=== PATIENT | male | born 1950 | race Hispanic/Latino ===

== ENCOUNTER 2017-09-12 01:18 | Inpatient (IN) | payer OTHER, MEDICARE ==
[~2017-09-12] VITALS: Ht 175.3 cm; Wt 73.7 kg
[~2017-09-12 01:18] MED LIST: AEC81 PO; ATOR40TA69 PO; CALC-866 PO; CLOP75TA32 PO; ENAL10TA PO; FOLI1TAB85 PO; GLYB-228 PO; HYDR12.530 PO; IVAB5TAB PO; LEVO500T2 PO; METO50TA18 PO; VITA400C70 PO
[2017-09-12 01:48] LABS: APPEARANCE,URINE CLEAR (CLEAR); COLOR,URINE YELLOW (YELLOW); GLUCOSE, URINE (UA) TRACE mg/dL (NEGATIVE); OCCULT BLOOD,URINE NEGATIVE (NEGATIVE); PH,URINE 6.5 (5.0-8.0); PROTEIN,URINE NEGATIVE (NEGATIVE)
[2017-09-12 01:49] LABS: BACTERIA,URINE Rare /HPF (None Seen); BILIRUBIN,URINE NEGATIVE (NEGATIVE); KETONES,URINE TRACE mg/dL (NEGATIVE); LEUKOCYTE ESTERASE ,URINE NEGATIVE (NEGATIVE); MUCUS,URINE Moderate LPF (None Seen); NITRATE,URINE NEGATIVE (NEGATIVE); RBC,URINE None Seen /HPF (0-1); SQUAMOUS EPITHELIAL CELL,UR Few /LPF (0-2); WBC,URINE None Seen /HPF (0-1)
[2017-09-12] MEDS ORDERED: ACETAMINOPHEN EXTRA STRENGTH 500 MG TABLET ONE (01:55)
[2017-09-12] MEDS ORDERED: CEFTRIAXONE SODIUM 2 GM VIAL ONE (01:55)
[2017-09-12 02:05] LABS: BASOPHILS % (AUTO) 0.4 % (0.0-5.0); EOSINOPHILS % (AUTO) 0.6 % (0.0-8.0); HEMATOCRIT 30.6 % (42-54); MEAN CORPUSCULAR HEMOGLOBIN 27.3 pg (27.0-33.0); MEAN CORPUSCULAR HGB CONC 32.9 g/dL (32.0-36.0); MEAN CORPUSCULAR VOLUME 82.8 fL (79-99); MONOCYTES % (AUTO) 10.9 % (3.0-13.0); NEUTROPHILS % (AUTO) 75.1 % (40.0-77.0); NUCLEATED RED BLOOD CELLS 0.1 % (0.0-0.19); PLATELET COUNT (AUTO) 161 K/uL (130-400); RED CELL DISTRIBUTION WIDTH 15.8 % (11.0-15.5); WHITE BLOOD COUNT (AUTO) 11.8 K/uL (4.8-10.8)
[2017-09-12 02:14] LABS: CARBON DIOXIDE 21 mmol/L (21-32); CHLORIDE 101 mmol/L (101-111); CREATININE 1.6 mg/dL (0.5-1.5); GLOMERULAR FILTR. RATE CALC 46 mL/min (>60); GLUCOSE,RANDOM 221 mg/dL (70-105); POTASSIUM 4.4 mmol/L (3.5-5.1); SODIUM SERUM 138 mmol/L (136-145); UREA NITROGEN, BLOOD 25 mg/dL (7-18)
[2017-09-12 02:15] LABS: INR 1.03 (0.85-1.15); PARTIAL THROMBOPLASTIN TIME 27.8 SEC (26.3-35.5); PROTHROMBIN TIME 10.8 SEC (9.6-11.6)
[2017-09-12 02:31] LABS: ALANINE AMINOTRANSFERASE 16 U/L (12-78); ALBUMIN 3.5 g/dL (3.5-5.0); ASPARTATE AMINOTRANSFERASE 17 U/L (10-37); BILIRUBIN,TOTAL 1.1 mg/dL (0.2-1.0); CREATINE KINASE MB < 0.5 ng/mL (0.5-3.6); CREATINE KINASE, TOTAL 118 U/L (21-232); MYOGLOBIN 76 ng/mL (10-92); TOTAL PROTEIN, SERUM 6.8 g/dL (6.0-8.3)
[2017-09-12] MEDS ORDERED: ASPIRIN 325 MG TABLET ONE ×2 (02:37→09:23)
[2017-09-12] MEDS ORDERED: FUROSEMIDE 10 MG/ML 4ML VIAL ONE (02:38)
[2017-09-12] MEDS ORDERED: FUROSEMIDE 10 MG/ML 2ML VIAL ONE (02:38)
[2017-09-12] MEDS ORDERED: METOPROLOL TARTRATE 1 MG/ML 5ML VIAL IV ONE (02:38)
[2017-09-12] MEDS ORDERED: ENOXAPARIN SODIUM 100 MG/1 ML SQ ONE (04:46)
[2017-09-12] MEDS ORDERED: LIDOCAINE HCL-MPF 1% 2ML VIAL IVP PRN (06:15)
[2017-09-12] MEDS ORDERED: HYDRALAZINE HCL 20 MG/ML VIAL IV PRN (06:15)
[2017-09-12] MEDS ORDERED: POTASSIUM CHLORIDE 20MEQ/100ML 100 ML IV PRN (06:15)
[2017-09-12] MEDS ORDERED: NITROGLYCERIN 0.4 MG SL TAB SL PRN (06:15)
[2017-09-12] MEDS: NITROGLYCERIN 1GM/1 INCH PACKET TD SCH ×3 (06:15→23:11)
[2017-09-12] MEDS: LEVOFLOXACIN 500 MG/D5W 100 ML 100 ML IV SCH (06:15)
[2017-09-12] MEDS ORDERED: ONDANSETRON HCL 4 MG/2 ML VIAL IV PRN (06:15)
[2017-09-12] MEDS ORDERED: ACETAMINOPHEN 325 MG TAB PO PRN ×2 (06:15)
[2017-09-12] MEDS ORDERED: POTASSIUM CHLORIDE 10% ELIXIR 20 MEQ/15 ML UDCUP PO PRN (06:15)
[2017-09-12] MEDS ORDERED: POTASSIUM CHLORIDE 20 MEQ ERTAB PO PRN (06:15)
[2017-09-12] MEDS ORDERED: GUAIFENESIN-DM 200/20 MG 10 ML PO PRN (06:15)
[2017-09-12] MEDS ORDERED: LEVOFLOXACIN 500 MG/D5W 100 ML 100 ML ONE (06:39)
[2017-09-12] MEDS ORDERED: NITROGLYCERIN 1GM/1 INCH PACKET TD ONE (06:40)
[2017-09-12] MEDS: INSULIN HUMULIN R 100 UNIT/ML 3ML SQ SCH ×4 (07:30→22:50)
[2017-09-12] MEDS ORDERED: ASPIRIN 325 MG TABLET PO SCH (09:00)
[2017-09-12] MEDS ORDERED: FAMOTIDINE 20MG TAB 20 MG TAB ONE (09:24)
[2017-09-12] MEDS ORDERED: ENOXAPARIN SODIUM 30 MG/0.3 ML SQ ONE (09:24)
[2017-09-12] MEDS: FAMOTIDINE 20MG TAB 20 MG TAB PO SCH ×2 (09:43→23:11)
[2017-09-12] MEDS ORDERED: ENOXAPARIN SODIUM 40 MG/0.4 ML SYRINGE SQ ONE (09:50)
[2017-09-12] MEDS: ENOXAPARIN SODIUM 40 MG/0.4 ML SYRINGE SQ SCH (09:52)
[2017-09-12 10:38] LABS: CREATINE KINASE MB 2.1 ng/mL (0.5-3.6)
[2017-09-12 10:40] LABS: TROPONIN I 1.43 ng/mL (0.00-0.06)
[2017-09-12] MEDS ORDERED: IPRATROPIUM/ALBUTEROL SULFATE 3 ML SOLUTION IH ONE (10:56)
[2017-09-12] MEDS: IPRATROPIUM/ALBUTEROL SULFATE 3 ML SOLUTION IH SCH ×2 (11:06→20:17)
[2017-09-12 13:23] VITALS: BP 123/67
[2017-09-12] MEDS ORDERED: FERR-82 PO (13:25)
[2017-09-12] MEDS: FUROSEMIDE 10 MG/ML 4ML VIAL IVP SCH (15:18)
[2017-09-12 16:00] VITALS: BP 132/77
[2017-09-12 19:31] VITALS: BP 111/66
[2017-09-12 23:38] VITALS: BP 139/83
[2017-09-12 23:56] VITALS: BP 139/83
[2017-09-13] MEDS: IPRATROPIUM/ALBUTEROL SULFATE 3 ML SOLUTION IH SCH ×4 (00:58→19:49)
[2017-09-13 03:55] VITALS: BP 106/65
[2017-09-13 04:21] LABS: HEMATOCRIT 27.7 % (42-54); MEAN CORPUSCULAR HEMOGLOBIN 28.2 pg (27.0-33.0); MEAN CORPUSCULAR HGB CONC 34.1 g/dL (32.0-36.0); MEAN CORPUSCULAR VOLUME 82.6 fL (79-99); PLATELET COUNT (AUTO) 171 K/uL (130-400); RED BLOOD CELL COUNT(AUTO) 3.35 MIL/uL (4.50-6.20); RED CELL DISTRIBUTION WIDTH 15.8 % (11.0-15.5); WHITE BLOOD COUNT (AUTO) 7.2 K/uL (4.8-10.8)
[2017-09-13 04:27] LABS: CREATININE 1.4 mg/dL (0.5-1.5)
[2017-09-13 04:43] LABS: B-TYPE NATRIURETIC PEPTIDE 483 pg/mL (0-100)
[2017-09-13] MEDS: FUROSEMIDE 10 MG/ML 4ML VIAL IVP SCH ×2 (04:57→17:36)
[2017-09-13] MEDS: INSULIN HUMULIN R 100 UNIT/ML 3ML SQ SCH ×4 (06:23→21:00)
[2017-09-13] MEDS: LEVOFLOXACIN 500 MG/D5W 100 ML 100 ML IV SCH (06:44)
[2017-09-13] MEDS: NITROGLYCERIN 1GM/1 INCH PACKET TD SCH (06:47)
[2017-09-13 07:00] VITALS: BP 100/67
[2017-09-13] MEDS: FAMOTIDINE 20MG TAB 20 MG TAB PO SCH ×2 (10:13→22:15)
[2017-09-13] MEDS: ENOXAPARIN SODIUM 40 MG/0.4 ML SYRINGE SQ SCH (10:13)
[2017-09-13] MEDS: GLIPIZIDE XL 5MG TAB PO SCH (10:14)
[2017-09-13 11:00] VITALS: BP 123/75
[2017-09-13 16:00] VITALS: BP 131/77
[2017-09-13 19:41] VITALS: BP 129/80
[2017-09-13] MEDS: ATORVASTATIN CALCIUM 40 MG TABLET PO SCH (22:16)
[2017-09-13 23:56] VITALS: BP 110/69
[2017-09-14] MEDS: IPRATROPIUM/ALBUTEROL SULFATE 3 ML SOLUTION IH SCH ×4 (01:36→22:01)
[2017-09-14 03:49] VITALS: BP 109/65
[2017-09-14] MEDS: FUROSEMIDE 10 MG/ML 4ML VIAL IVP SCH (04:09)
[2017-09-14 04:15] LABS: HEMATOCRIT 28.9 % (42-54); MEAN CORPUSCULAR HEMOGLOBIN 27.7 pg (27.0-33.0); MEAN CORPUSCULAR HGB CONC 33.5 g/dL (32.0-36.0); MEAN CORPUSCULAR VOLUME 82.6 fL (79-99); PLATELET COUNT (AUTO) 195 K/uL (130-400); RED CELL DISTRIBUTION WIDTH 16.2 % (11.0-15.5); WHITE BLOOD COUNT (AUTO) 7.7 K/uL (4.8-10.8)
[2017-09-14 04:26] LABS: CREATININE 1.6 mg/dL (0.5-1.5); POTASSIUM 3.5 mmol/L (3.5-5.1)
[2017-09-14] MEDS ORDERED: POTASSIUM CHLORIDE 10 MEQ/TAB.SA PO ONE ×4 (04:55→05:23)
[2017-09-14] MEDS: LEVOFLOXACIN 500 MG/D5W 100 ML 100 ML IV SCH (05:07)
[2017-09-14] MEDS: INSULIN HUMULIN R 100 UNIT/ML 3ML SQ SCH ×4 (06:17→21:00)
[2017-09-14 07:00] VITALS: BP 92/59
[2017-09-14] MEDS ORDERED: HYDROCHLOROTHIAZIDE 25 MG TABLET PO SCH (09:00)
[2017-09-14] MEDS: CLOPIDOGREL BISULFATE 75 MG TAB PO SCH (09:58)
[2017-09-14] MEDS: ASPIRIN 81 MG EC TAB PO SCH (09:59)
[2017-09-14] MEDS: FAMOTIDINE 20MG TAB 20 MG TAB PO SCH ×2 (09:59→22:22)
[2017-09-14] MEDS: GLIPIZIDE XL 5MG TAB PO SCH (10:00)
[2017-09-14] MEDS: FERROUS SULFATE 325 MG TABLET.DR PO SCH (10:00)
[2017-09-14] MEDS: ENOXAPARIN SODIUM 40 MG/0.4 ML SYRINGE SQ SCH (10:01)
[2017-09-14] MEDS: METOPROLOL TARTRATE 25 MG TAB PO SCH ×2 (10:04→22:22)
[2017-09-14] MEDS: FUROSEMIDE 40 MG TABLET PO SCH (10:04)
[2017-09-14 11:00] VITALS: BP 109/66
[2017-09-14 16:00] VITALS: BP 100/65
[2017-09-14 19:38] VITALS: BP 103/64
[2017-09-14 19:39] LABS: CREATINE KINASE MB 22.1 ng/mL (0.5-3.6)
[2017-09-14 19:55] LABS: TROPONIN I 15.96 ng/mL (0.00-0.06)
[2017-09-14] MEDS: ATORVASTATIN CALCIUM 40 MG TABLET PO SCH (22:22)
[2017-09-14 22:48] VITALS: BP 117/72
[2017-09-15 04:04] VITALS: BP 99/56
[2017-09-15 04:45] LABS: POTASSIUM 4.5 mmol/L (3.5-5.1)
[2017-09-15] MEDS: LEVOFLOXACIN 500 MG/D5W 100 ML 100 ML IV SCH (05:49)
[2017-09-15] MEDS: INSULIN HUMULIN R 100 UNIT/ML 3ML SQ SCH ×4 (05:57→21:00)
[2017-09-15] MEDS: IPRATROPIUM/ALBUTEROL SULFATE 3 ML SOLUTION IH SCH ×3 (07:00→21:55)
[2017-09-15 07:13] VITALS: BP 97/60
[2017-09-15] MEDS: FERROUS SULFATE 325 MG TABLET.DR PO SCH (08:14)
[2017-09-15] MEDS: CLOPIDOGREL BISULFATE 75 MG TAB PO SCH (08:14)
[2017-09-15] MEDS: ASPIRIN 81 MG EC TAB PO SCH (08:14)
[2017-09-15] MEDS: FUROSEMIDE 40 MG TABLET PO SCH (08:14)
[2017-09-15] MEDS: METOPROLOL TARTRATE 25 MG TAB PO SCH ×2 (08:15→21:14)
[2017-09-15] MEDS: ENOXAPARIN SODIUM 40 MG/0.4 ML SYRINGE SQ SCH (08:15)
[2017-09-15] MEDS: GLIPIZIDE XL 5MG TAB PO SCH (08:15)
[2017-09-15] MEDS: FAMOTIDINE 20MG TAB 20 MG TAB PO SCH ×2 (08:15→21:14)
[2017-09-15] MEDS ORDERED: RENAL DOSE IV PRN (09:00)
[2017-09-15] MEDS ORDERED: ENOXAPARIN SODIUM 1 MG/KG SQ SCH (09:00)
[2017-09-15] MEDS ORDERED: MORPHINE SULFATE 2 MG/ML 1ML SYG IVP PRN (09:30)
[2017-09-15 10:20] LABS: CREATINE KINASE MB 7.1 ng/mL (0.5-3.6)
[2017-09-15] MEDS: ENOXAPARIN SODIUM 80 MG/0.8 ML SQ SCH (10:30)
[2017-09-15] MEDS: LEVOFLOXACIN 250 MG/D5W 50ML 50 ML IVPB SCH (10:30)
[2017-09-15 10:33] LABS: TROPONIN I 7.15 ng/mL (0.00-0.06)
[2017-09-15 10:57] VITALS: BP 105/62
[2017-09-15 16:34] VITALS: BP 119/71
[2017-09-15 19:27] VITALS: BP 113/67
[2017-09-15] MEDS ORDERED: ACETYLCYSTEINE 20% 200MG/ML 4ML VIAL PO SCH (21:00)
[2017-09-15] MEDS: ACETYLCYSTEINE 10% 100MG/ML 4ML VIAL PO SCH (21:14)
[2017-09-15] MEDS: ATORVASTATIN CALCIUM 40 MG TABLET PO SCH (21:14)
[2017-09-15 23:23] VITALS: BP 96/60
[2017-09-15 23:48] LABS: APPEARANCE,URINE Clear (CLEAR); BILIRUBIN,URINE Negative (NEGATIVE); COLOR,URINE Yellow (YELLOW); GLUCOSE, URINE (UA) Negative (NEGATIVE); KETONES,URINE Negative (NEGATIVE); LEUKOCYTE ESTERASE ,URINE Negative (NEGATIVE); NITRATE,URINE Negative (NEGATIVE); OCCULT BLOOD,URINE Negative (NEGATIVE); PH,URINE 6.5 (5.0-8.0); PROTEIN,URINE Negative (NEGATIVE)
[2017-09-15 23:51] LABS: BACTERIA,URINE None Seen /HPF (None Seen); RBC,URINE None Seen /HPF (0-1); SQUAMOUS EPITHELIAL CELL,UR None Seen /LPF (0-2); WBC,URINE None Seen /HPF (0-1)
[2017-09-16 03:51] VITALS: BP 112/67
[2017-09-16 04:06] LABS: HEMATOCRIT 30.2 % (42-54); MEAN CORPUSCULAR HEMOGLOBIN 28.2 pg (27.0-33.0); MEAN CORPUSCULAR HGB CONC 34.3 g/dL (32.0-36.0); MEAN CORPUSCULAR VOLUME 82.2 fL (79-99); NUCLEATED RED BLOOD CELLS 0.1 % (0.0-0.19); PLATELET COUNT (AUTO) 243 K/uL (130-400); RED BLOOD CELL COUNT(AUTO) 3.68 MIL/uL (4.50-6.20); WHITE BLOOD COUNT (AUTO) 9.5 K/uL (4.8-10.8)
[2017-09-16 04:13] LABS: INR 1.05 (0.85-1.15); PARTIAL THROMBOPLASTIN TIME 27.3 SEC (26.3-35.5)
[2017-09-16 04:25] LABS: POTASSIUM 3.8 mmol/L (3.5-5.1)
[2017-09-16 04:26] LABS: CREATININE 1.9 mg/dL (0.5-1.5); MAGNESIUM 1.3 mg/dL (1.80-2.40); PHOSPHORUS 4.2 mg/dL (2.5-4.9); URIC ACID 8.2 mg/dL (2.6-7.2)
[2017-09-16] MEDS: IPRATROPIUM/ALBUTEROL SULFATE 3 ML SOLUTION IH SCH ×3 (06:07→22:18)
[2017-09-16] MEDS: INSULIN HUMULIN R 100 UNIT/ML 3ML SQ SCH ×4 (06:33→21:11)
[2017-09-16] MEDS: FUROSEMIDE 40 MG TABLET PO SCH (06:59)
[2017-09-16 07:15] VITALS: BP 111/67
[2017-09-16] MEDS: LEVOFLOXACIN 250 MG/D5W 50ML 50 ML IVPB SCH (07:45)
[2017-09-16] MEDS: CLOPIDOGREL BISULFATE 75 MG TAB PO SCH (07:46)
[2017-09-16] MEDS: FERROUS SULFATE 325 MG TABLET.DR PO SCH (07:46)
[2017-09-16] MEDS: ASPIRIN 81 MG EC TAB PO SCH (07:46)
[2017-09-16] MEDS: FAMOTIDINE 20MG TAB 20 MG TAB PO SCH ×2 (07:46→21:10)
[2017-09-16] MEDS: METOPROLOL TARTRATE 25 MG TAB PO SCH ×2 (07:46→21:10)
[2017-09-16] MEDS: ACETYLCYSTEINE 10% 100MG/ML 4ML VIAL PO SCH ×2 (07:46→21:10)
[2017-09-16] MEDS: GLIPIZIDE XL 5MG TAB PO SCH (07:46)
[2017-09-16] MEDS: ENOXAPARIN SODIUM 80 MG/0.8 ML SQ SCH (07:47)
[2017-09-16 11:15] VITALS: BP 102/63
[2017-09-16] MEDS: MAGNESIUM 2GM PREMIX 50ML 50 ML IV SCH (12:43)
[2017-09-16 16:20] VITALS: BP 105/63
[2017-09-16 19:17] VITALS: BP 104/61
[2017-09-16] MEDS: ATORVASTATIN CALCIUM 40 MG TABLET PO SCH (21:10)
[2017-09-16 23:16] VITALS: BP 94/53
[2017-09-17] MEDS ORDERED: LACTULOSE 20 GM/30 ML UDCUP PO PRN (03:00)
[2017-09-17 03:40] VITALS: BP 94/57
[2017-09-17 04:30] LABS: HEMATOCRIT 30.9 % (42-54); MEAN CORPUSCULAR HEMOGLOBIN 28.1 pg (27.0-33.0); MEAN CORPUSCULAR HGB CONC 33.9 g/dL (32.0-36.0); MEAN CORPUSCULAR VOLUME 82.9 fL (79-99); NUCLEATED RED BLOOD CELLS 0.1 % (0.0-0.19); PLATELET COUNT (AUTO) 246 K/uL (130-400); RED BLOOD CELL COUNT(AUTO) 3.73 MIL/uL (4.50-6.20)
[2017-09-17 04:46] LABS: CREATININE 1.8 mg/dL (0.5-1.5); MAGNESIUM 1.6 mg/dL (1.80-2.40); POTASSIUM 4.3 mmol/L (3.5-5.1)
[2017-09-17 05:07] LABS: % IRON SATURATION 15.5 % (30-44)
[2017-09-17] MEDS: IPRATROPIUM/ALBUTEROL SULFATE 3 ML SOLUTION IH SCH ×2 (05:55→13:14)
[2017-09-17] MEDS: INSULIN HUMULIN R 100 UNIT/ML 3ML SQ SCH ×2 (06:21→12:21)
[2017-09-17] MEDS: MAGNESIUM 2GM PREMIX 50ML 50 ML IV SCH (06:24)
[2017-09-17] MEDS ORDERED: GLYB5TAB8 PO (07:36)
[2017-09-17] MEDS ORDERED: FURO40TA7 PO (07:36)
[2017-09-17] MEDS ORDERED: METO25 PO (07:36)
[2017-09-17] MEDS ORDERED: AMOX-426 PO (07:36)
[2017-09-17 07:42] VITALS: BP 107/67
[2017-09-17] MEDS ORDERED: MAGNESIUM 2GM PREMIX 50ML 50 ML IV SCH (07:45)
[2017-09-17] MEDS ORDERED: METOPROLOL TARTRATE 25 MG TAB PO SCH (09:00)
[2017-09-17] MEDS: GLIPIZIDE XL 5MG TAB PO SCH (10:11)
[2017-09-17] MEDS: FUROSEMIDE 40 MG TABLET PO SCH (10:11)
[2017-09-17] MEDS: CLOPIDOGREL BISULFATE 75 MG TAB PO SCH (10:11)
[2017-09-17] MEDS: FERROUS SULFATE 325 MG TABLET.DR PO SCH (10:12)
[2017-09-17] MEDS: ASPIRIN 81 MG EC TAB PO SCH (10:12)
[2017-09-17] MEDS: ACETYLCYSTEINE 10% 100MG/ML 4ML VIAL PO SCH (10:12)
[2017-09-17] MEDS: FAMOTIDINE 20MG TAB 20 MG TAB PO SCH (10:12)
[2017-09-17] MEDS: LEVOFLOXACIN 250 MG/D5W 50ML 50 ML IVPB SCH (10:18)
[2017-09-17] MEDS: ENOXAPARIN SODIUM 80 MG/0.8 ML SQ SCH (10:19)
[2017-09-17 11:28] VITALS: BP 114/68
== END 2017-09-17 16:05 | disposition home or self-care (01) | DRG 280 ==
LOC: EDH 01:18 → EDHIP 04:41 → 2AH 13:17
PROVIDERS: ADMIT Internal Medicine; ATTEND Internal Medicine
DX: I21.4 Non-ST elevation (NSTEMI) myocardial infarction (principal); I50.23 Acute on chronic systolic (congestive) heart failure; N17.9 Acute kidney failure, unspecified; J18.9 Pneumonia, unspecified organism; E11.21 Type 2 diabetes mellitus with diabetic nephropathy; I13.0 Hypertensive heart and chronic kidney disease with heart failure and stage 1 through stage 4 chronic kidney disease, or unspecified chronic kidney disease; E11.65 Type 2 diabetes mellitus with hyperglycemia; E83.42 Hypomagnesemia; I42.0 Dilated cardiomyopathy; J44.0 Chronic obstructive pulmonary disease with (acute) lower respiratory infection; I42.9 Cardiomyopathy, unspecified; E11.22 Type 2 diabetes mellitus with diabetic chronic kidney disease; D64.9 Anemia, unspecified; E78.5 Hyperlipidemia, unspecified; H54.61 Unqualified visual loss, right eye, normal vision left eye; I25.110 Atherosclerotic heart disease of native coronary artery with unstable angina pectoris; I25.2 Old myocardial infarction; I25.5 Ischemic cardiomyopathy; I45.9 Conduction disorder, unspecified; N18.9 Chronic kidney disease, unspecified; Z95.1 Presence of aortocoronary bypass graft; Z95.810 Presence of automatic (implantable) cardiac defibrillator
CPT/HCPCS: 36415; 71045; 71046; 71250; 80048; 80053; 81001; 82550; 82553; 82728; 82948; 83540; 83550; 83605; 83735; 83874; 83880; 84100; 84484; 84550; 85025; 85027; 85610; 85730; 87040; 87088; 87804; 93005; 93306; 94640; 94664; 99291; J0696; J1650; J1815; J1940; J1956; J3475; J3490; J7608

== ENCOUNTER 2018-07-09 14:45 | Observation (INO) | payer OTHER, MEDICARE ==
[~2018-07-09 14:45] MED LIST changes: -CALC-866 PO; -ENAL10TA PO; +FERR-82 PO; +FURO40TA7 PO; -GLYB-228 PO; +GLYB5TAB8 PO; -HYDR12.530 PO; -IVAB5TAB PO; -LEVO500T2 PO; +METF-444 PO; +SACU1TAB PO; +SPIR25TA6 PO; -VITA400C70 PO
[2018-07-09] MEDS ORDERED: ASPIRIN 325 MG TABLET ONE (15:02)
[2018-07-09 15:35] LABS: BASOPHILS % (AUTO) 0.4 % (0.0-5.0); EOSINOPHILS % (AUTO) 0.9 % (0.0-8.0); HEMATOCRIT 34.5 % (42-54); LYMPHOCYTES % (AUTO) 25.8 % (21.0-51.0); MEAN CORPUSCULAR HEMOGLOBIN 29.2 pg (27.0-33.0); MEAN CORPUSCULAR HGB CONC 32.6 g/dL (32.0-36.0); MEAN CORPUSCULAR VOLUME 89.8 fL (79-99); MONOCYTES % (AUTO) 9.2 % (3.0-13.0); NEUTROPHILS % (AUTO) 63.7 % (40.0-77.0); PLATELET COUNT (AUTO) 165 K/uL (130-400); RED BLOOD CELL COUNT(AUTO) 3.84 MIL/uL (4.50-6.20); RED CELL DISTRIBUTION WIDTH 15.3 % (11.0-15.5); WHITE BLOOD COUNT (AUTO) 8.1 K/uL (4.8-10.8)
[2018-07-09 15:46] LABS: CREATININE 1.5 mg/dL (0.5-1.5); POTASSIUM 4.4 mmol/L (3.5-5.1)
[2018-07-09 15:49] LABS: INR 0.99 (0.85-1.15); PARTIAL THROMBOPLASTIN TIME 26.1 SEC (26.3-35.5); PROTHROMBIN TIME 10.4 SEC (9.6-11.6)
[2018-07-09 16:09] LABS: ALBUMIN 3.7 g/dL (3.5-5.0); BILIRUBIN,TOTAL 0.3 mg/dL (0.2-1.0); TOTAL PROTEIN, SERUM 7.5 g/dL (6.0-8.3)
[2018-07-09] MEDS ORDERED: ONDANSETRON HCL 4 MG/2 ML VIAL IV PRN (17:45)
[2018-07-09] MEDS ORDERED: HYDRALAZINE HCL 20 MG/ML VIAL IV PRN (17:45)
[2018-07-09] MEDS ORDERED: LACTULOSE 20 GM/30 ML UDCUP PO PRN (17:45)
[2018-07-09] MEDS ORDERED: MORPHINE SULFATE 4 MG/1ML SYG IV PRN (17:45)
[2018-07-09] MEDS ORDERED: MORPHINE SULFATE 2 MG/ML 1ML SYG IV PRN (17:45)
[2018-07-09] MEDS ORDERED: ACETAMINOPHEN 325 MG TAB PO PRN ×2 (17:45)
[2018-07-09] MEDS ORDERED: ZOLPIDEM TARTRATE 5 MG TAB PO PRN (17:45)
[2018-07-09] MEDS: NITROGLYCERIN 1GM/1 INCH PACKET TD SCH (17:45)
[2018-07-09] MEDS ORDERED: CLOPIDOGREL BISULFATE 300 MG TAB PO ONE (18:30)
[2018-07-09 20:20] LABS: HEMOGLOBIN A1C 9.7 % (4.0-6.0)
[2018-07-09] MEDS ORDERED: CLOPIDOGREL BISULFATE 300 MG TAB ONE (20:35)
[2018-07-09] MEDS ORDERED: METOPROLOL TARTRATE 25 MG TAB ONE (20:35)
[2018-07-09] MEDS ORDERED: NITROGLYCERIN 1GM/1 INCH PACKET TD ONE (20:35)
[2018-07-09 20:39] LABS: % IRON SATURATION 22.9 % (30-44)
[2018-07-09 20:46] LABS: CREATINE KINASE, TOTAL 67 U/L (21-232); MYOGLOBIN 46 ng/mL (10-92); THYROID STIMULATING HORMONE 2.73 uIU/mL (0.36-3.74); TROPONIN I < 0.04 ng/mL (0.00-0.06)
[2018-07-09 20:48] LABS: CRP QUANTITATIVE < 2.00 mg/L (0.00-9.0)
[2018-07-09] MEDS ORDERED: DEXTROSE 50%-WATER 50 ML DISP.SYRIN IV PRN (21:00)
[2018-07-09] MEDS ORDERED: METOPROLOL TARTRATE 25 MG TAB PO SCH (21:00)
[2018-07-09] MEDS: INSULIN HUMULIN R 100 UNIT/ML 3ML SQ SCH (21:00)
[2018-07-09] MEDS ORDERED: GLUCAGON 1MG KIT 1 MG ML IM PRN (21:00)
[2018-07-09] MEDS ORDERED: POTASSIUM CHLORIDE 20MEQ/100ML 100 ML IV PRN (21:30)
[2018-07-09] MEDS ORDERED: POTASSIUM CHLORIDE 20 MEQ ERTAB PO PRN (21:30)
[2018-07-09] MEDS ORDERED: LIDOCAINE HCL-MPF 1% 2ML VIAL IVP PRN (21:30)
[2018-07-09] MEDS ORDERED: POTASSIUM CHLORIDE 10% ELIXIR 20 MEQ/15 ML UDCUP PO PRN (21:30)
[2018-07-09 22:21] VITALS: BP 126/70
[2018-07-09 23:00] VITALS: BP 126/70
[2018-07-09] MEDS ORDERED: SACU1TAB PO (23:45)
[2018-07-09] MEDS ORDERED: TORS5TAB12 PO (23:45)
[2018-07-10 01:57] LABS: TROPONIN I 0.04 ng/mL (0.00-0.06)
[2018-07-10] MEDS: NITROGLYCERIN 1GM/1 INCH PACKET TD SCH ×3 (03:38→17:45)
[2018-07-10 04:00] VITALS: BP 112/58
[2018-07-10] MEDS: MAGNESIUM 2GM PREMIX 50ML 50 ML IV PRN ×2 (05:17→06:35)
[2018-07-10] MEDS: INSULIN HUMULIN R 100 UNIT/ML 3ML SQ SCH ×3 (06:37→16:30)
[2018-07-10 07:48] VITALS: BP 104/56
[2018-07-10] MEDS ORDERED: ASPIRIN 325 MG TABLET PO SCH (09:00)
[2018-07-10] MEDS ORDERED: ASCORBIC ACID 500 MG TAB PO SCH (09:00)
[2018-07-10] MEDS ORDERED: TORSEMIDE 20 MG TAB PO SCH (09:00)
[2018-07-10] MEDS ORDERED: PANTOPRAZOLE SODIUM 40 MG TABLET.DR PO SCH (09:00)
[2018-07-10] MEDS ORDERED: FERROUS SULFATE 325 MG TABLET.DR PO SCH (09:00)
[2018-07-10] MEDS ORDERED: ENOXAPARIN SODIUM 40 MG/0.4 ML SYRINGE SQ SCH (09:00)
[2018-07-10] MEDS ORDERED: LINAGLIPTIN 5 MG TABLET PO SCH (09:00)
[2018-07-10] MEDS ORDERED: VALSARTAN PO SCH (09:00)
[2018-07-10] MEDS ORDERED: SACUBITRIL PO SCH (09:00)
[2018-07-10] MEDS ORDERED: SPIRONOLACTONE 25 MG TAB PO SCH (09:00)
[2018-07-10] MEDS ORDERED: METOPROLOL TARTRATE 50 MG TAB PO SCH (09:00)
[2018-07-10] MEDS ORDERED: ASPIRIN 81 MG EC TAB PO SCH (09:00)
[2018-07-10] MEDS ORDERED: CLOPIDOGREL BISULFATE 75 MG TAB PO SCH ×2 (09:00)
[2018-07-10] MEDS ORDERED: FOLIC ACID/VITAMIN B COMP W-C 1 MG CAPSULE PO SCH (09:00)
[2018-07-10] MEDS ORDERED: MAGNESIUM OXIDE 400 MG TABLET PO SCH (09:00)
[2018-07-10] MEDS: METFORMIN HCL 500 MG TABLET PO SCH ×2 (09:22→17:43)
[2018-07-10 09:44] LABS: BASOPHILS % (AUTO) 0.8 % (0.0-5.0); EOSINOPHILS % (AUTO) 1.1 % (0.0-8.0); HEMATOCRIT 33.9 % (42-54); LYMPHOCYTES % (AUTO) 20.6 % (21.0-51.0); MEAN CORPUSCULAR HEMOGLOBIN 30.4 pg (27.0-33.0); MEAN CORPUSCULAR HGB CONC 34.2 g/dL (32.0-36.0); MEAN CORPUSCULAR VOLUME 88.9 fL (79-99); MONOCYTES % (AUTO) 7.7 % (3.0-13.0); NEUTROPHILS % (AUTO) 69.8 % (40.0-77.0); PLATELET COUNT (AUTO) 167 K/uL (130-400); RED BLOOD CELL COUNT(AUTO) 3.81 MIL/uL (4.50-6.20); RED CELL DISTRIBUTION WIDTH 15.5 % (11.0-15.5); WHITE BLOOD COUNT (AUTO) 7.2 K/uL (4.8-10.8)
[2018-07-10 09:50] LABS: CREATININE 1.2 mg/dL (0.5-1.5); POTASSIUM 4.3 mmol/L (3.5-5.1)
[2018-07-10 10:08] LABS: ALBUMIN 3.4 g/dL (3.5-5.0); BILIRUBIN,TOTAL 0.4 mg/dL (0.2-1.0); MAGNESIUM 1.8 mg/dL (1.80-2.40); TOTAL PROTEIN, SERUM 6.7 g/dL (6.0-8.3); TROPONIN I 0.1 ng/mL (0.00-0.06)
[2018-07-10 11:03] VITALS: BP 127/71
[2018-07-10] MEDS ORDERED: LINA5TAB PO (15:20)
[2018-07-10 16:16] VITALS: BP 93/54
[2018-07-10] MEDS ORDERED: INSULIN GLARGINE 100 UNITS/ML 10 ML VIAL SQ SCH (21:00)
[2018-07-10] MEDS ORDERED: ATORVASTATIN CALCIUM 40 MG TABLET PO SCH (21:00)
== END 2018-07-10 18:16 | disposition home or self-care (01) ==
LOC: EDH 14:45 → EDHIP 17:37 → 2AH 19:56
PROVIDERS: ADMIT Internal Medicine; ATTEND Internal Medicine
DX: R07.89 Other chest pain (principal); I25.5 Ischemic cardiomyopathy; I11.0 Hypertensive heart disease with heart failure; I50.42 Chronic combined systolic (congestive) and diastolic (congestive) heart failure; E11.65 Type 2 diabetes mellitus with hyperglycemia; E83.42 Hypomagnesemia; G47.00 Insomnia, unspecified; I25.10 Atherosclerotic heart disease of native coronary artery without angina pectoris; I25.2 Old myocardial infarction; K59.00 Constipation, unspecified; N19 Unspecified kidney failure; Z83.3 Family history of diabetes mellitus; Z95.1 Presence of aortocoronary bypass graft; Z95.810 Presence of automatic (implantable) cardiac defibrillator; Z79.84 Long term (current) use of oral hypoglycemic drugs
CPT/HCPCS: 36415 ×2; 71045; 80053 ×2; 80061; 82550 ×4; 82948 ×3; 83036; 83540; 83550; 83735 ×2; 83874 ×4; 83880; 84443; 84484 ×4; 85025 ×2; 85610; 85730; 86140; 93005 ×3; 93306; 96372; 99285; G0378 ×25; J1650; J1815 ×2; J3475 ×2

== ENCOUNTER 2018-07-30 23:40 | Observation (INO) | payer OTHER, MEDICARE ==
[~2018-07-30] VITALS: Ht 172.7 cm; Wt 65.3 kg
[~2018-07-30 23:40] MED LIST changes: -FURO40TA7 PO; -GLYB5TAB8 PO; +LINA5TAB PO; +TORS5TAB12 PO
[2018-07-30 23:58] LABS: BASOPHILS % (AUTO) 0.5 % (0.0-5.0); EOSINOPHILS % (AUTO) 1.1 % (0.0-8.0); HEMATOCRIT 36.7 % (42-54); LYMPHOCYTES % (AUTO) 31.9 % (21.0-51.0); MEAN CORPUSCULAR HEMOGLOBIN 30.5 pg (27.0-33.0); MEAN CORPUSCULAR HGB CONC 34.1 g/dL (32.0-36.0); MEAN CORPUSCULAR VOLUME 89.3 fL (79-99); MONOCYTES % (AUTO) 11.9 % (3.0-13.0); NEUTROPHILS % (AUTO) 54.6 % (40.0-77.0); PLATELET COUNT (AUTO) 206 K/uL (130-400); RED CELL DISTRIBUTION WIDTH 14.4 % (11.0-15.5); WHITE BLOOD COUNT (AUTO) 8.8 K/uL (4.8-10.8)
[2018-07-31] MEDS ORDERED: NITROGLYCERIN 1GM/1 INCH PACKET TD ONE ×2 (00:03→09:34)
[2018-07-31 00:16] LABS: CREATININE 1.5 mg/dL (0.5-1.5); INR 0.97 (0.85-1.15); PARTIAL THROMBOPLASTIN TIME 27.1 SEC (26.3-35.5); POTASSIUM 4.4 mmol/L (3.5-5.1); PROTHROMBIN TIME 10.2 SEC (9.6-11.6)
[2018-07-31 00:21] LABS: BILIRUBIN,TOTAL 0.4 mg/dL (0.2-1.0); TOTAL PROTEIN, SERUM 7.6 g/dL (6.0-8.3)
[2018-07-31 00:26] LABS: B-TYPE NATRIURETIC PEPTIDE 209 pg/mL (0-100)
[2018-07-31] MEDS ORDERED: MAGNESIUM OXIDE 400 MG TABLET PO ONE (00:27)
[2018-07-31] MEDS ORDERED: METOPROLOL TARTRATE 1 MG/ML 5ML VIAL IV ONE (00:27)
[2018-07-31] MEDS ORDERED: ACETAMINOPHEN 325 MG TAB PO PRN (01:00)
[2018-07-31] MEDS ORDERED: MORPHINE SULFATE 2 MG/ML 1ML SYG IV PRN (01:00)
[2018-07-31] MEDS ORDERED: NITROGLYCERIN 1GM/1 INCH PACKET TD SCH ×2 (01:00→06:26)
[2018-07-31] MEDS ORDERED: ONDANSETRON HCL 4 MG/2 ML VIAL IV PRN (01:00)
[2018-07-31] MEDS ORDERED: PHARMACY COMMUNICATION MISC SCH (01:45)
[2018-07-31 02:34] LABS: APPEARANCE,URINE Clear (CLEAR); BILIRUBIN,URINE Negative (NEGATIVE); COLOR,URINE Yellow (YELLOW); GLUCOSE, URINE (UA) 250 mg/dL (NEGATIVE); KETONES,URINE Negative (NEGATIVE); LEUKOCYTE ESTERASE ,URINE Negative (NEGATIVE); NITRATE,URINE Negative (NEGATIVE); OCCULT BLOOD,URINE Negative (NEGATIVE); PROTEIN,URINE Negative (NEGATIVE)
[2018-07-31 02:56] LABS: BACTERIA,URINE Rare /HPF (None Seen); RBC,URINE None Seen /HPF (0-1); WBC,URINE None Seen /HPF (0-1)
[2018-07-31] MEDS ORDERED: ASPIRIN 325 MG TABLET ONE (08:59)
[2018-07-31] MEDS ORDERED: ENOXAPARIN SODIUM 30 MG/0.3 ML SQ ONE (08:59)
[2018-07-31] MEDS ORDERED: CLOPIDOGREL BISULFATE 75 MG TAB ONE (08:59)
[2018-07-31] MEDS ORDERED: SPIRONOLACTONE 25 MG TAB PO SCH (09:00)
[2018-07-31] MEDS ORDERED: VITAMIN B COMPLEX 1 CAPSULE PO SCH (09:00)
[2018-07-31] MEDS ORDERED: METOPROLOL TARTRATE 50 MG TAB PO SCH (09:00)
[2018-07-31] MEDS ORDERED: ASPIRIN 325 MG TABLET PO SCH (09:00)
[2018-07-31] MEDS ORDERED: TORSEMIDE 20 MG TAB PO SCH (09:00)
[2018-07-31] MEDS ORDERED: ENOXAPARIN SODIUM 30 MG/0.3 ML SQ SCH (09:00)
[2018-07-31] MEDS ORDERED: CLOPIDOGREL BISULFATE 75 MG TAB PO SCH (09:00)
[2018-07-31] MEDS ORDERED: FAMOTIDINE/PF 20 MG/2 ML VIAL IV ONE (09:00)
[2018-07-31] MEDS ORDERED: METOPROLOL TARTRATE 25 MG TAB PO SCH ×2 (09:00)
[2018-07-31] MEDS ORDERED: FAMOTIDINE/PF 20 MG/2 ML VIAL IV SCH (09:00)
[2018-07-31] MEDS ORDERED: INSULIN HUMULIN R 100 UNIT/ML 3ML ONE (09:01)
[2018-07-31] MEDS ORDERED: KETOROLAC TROMETHAMINE 15MG/ML ONE (17:08)
== END 2018-07-31 23:58 | disposition home or self-care (01) ==
LOC: EDH 23:40 → EDHIP 07-31 00:50
PROVIDERS: ADMIT Internal Medicine; ATTEND Internal Medicine
DX: I24.9 Acute ischemic heart disease, unspecified (principal); I25.10 Atherosclerotic heart disease of native coronary artery without angina pectoris; E11.65 Type 2 diabetes mellitus with hyperglycemia; E78.5 Hyperlipidemia, unspecified; I10 Essential (primary) hypertension; Z82.49 Family history of ischemic heart disease and other diseases of the circulatory system; Z83.3 Family history of diabetes mellitus; Z95.1 Presence of aortocoronary bypass graft; Z95.810 Presence of automatic (implantable) cardiac defibrillator
CPT/HCPCS: 36415; 71045; 80053; 81001; 82948; 83735; 83880; 84484 ×2; 85025; 85610; 85730; 93005; 99291; G0378 ×23; J1650; J1815; J1885; J3490 ×2

== ENCOUNTER 2018-10-05 08:47 | Observation (INO) | payer OTHER, MEDICARE ==
[~2018-10-05] VITALS: Ht 172.7 cm; Wt 61.9 kg
[~2018-10-05 08:47] MED LIST changes: +ALPR0.25 PO; -FOLI1TAB85 PO; -LINA5TAB PO; -METO50TA18 PO; -SACU1TAB PO; -SPIR25TA6 PO; -TORS5TAB12 PO; +[UNRECOGNIZED DRUG - OTHER]
[2018-10-05] MEDS ORDERED: ASPIRIN 81MG TAB.CHEW ONE (09:17)
[2018-10-05] MEDS ORDERED: ONDANSETRON HCL 4 MG/2 ML VIAL ONE (09:18)
[2018-10-05 09:21] LABS: BASOPHILS % (AUTO) 0.4 % (0.0-5.0); EOSINOPHILS % (AUTO) 0.8 % (0.0-8.0); HEMATOCRIT 42.5 % (42-54); MEAN CORPUSCULAR HEMOGLOBIN 30.2 pg (27.0-33.0); MEAN CORPUSCULAR HGB CONC 33.2 g/dL (32.0-36.0); MEAN CORPUSCULAR VOLUME 90.9 fL (79-99); MONOCYTES % (AUTO) 9.3 % (3.0-13.0); NEUTROPHILS % (AUTO) 61.5 % (40.0-77.0); PLATELET COUNT (AUTO) 207 K/uL (130-400); RED BLOOD CELL COUNT(AUTO) 4.68 MIL/uL (4.50-6.20); WHITE BLOOD COUNT (AUTO) 9.1 K/uL (4.8-10.8)
[2018-10-05 09:28] LABS: CREATININE 1.4 mg/dL (0.5-1.5); POTASSIUM 4.1 mmol/L (3.5-5.1)
[2018-10-05 09:33] LABS: INR 1.06 (0.85-1.15); PARTIAL THROMBOPLASTIN TIME 28.8 SEC (26.3-35.5); PROTHROMBIN TIME 11.1 SEC (9.6-11.6)
[2018-10-05 09:47] LABS: ALBUMIN 4.5 g/dL (3.5-5.0); BILIRUBIN,TOTAL 0.5 mg/dL (0.2-1.0); TOTAL PROTEIN, SERUM 8.4 g/dL (6.0-8.3)
[2018-10-05] MEDS ORDERED: MORPHINE SULFATE 2 MG/ML 1ML SYG IV PRN (13:30)
[2018-10-05] MEDS ORDERED: ACETAMINOPHEN 325 MG TAB PO PRN (13:30)
[2018-10-05] MEDS ORDERED: HYDRALAZINE HCL 20 MG/ML VIAL IV PRN (13:30)
[2018-10-05] MEDS ORDERED: ONDANSETRON HCL 4 MG/2 ML VIAL IV PRN (13:30)
[2018-10-05 15:15] LABS: MAGNESIUM 1.1 mg/dL (1.80-2.40)
[2018-10-05 15:16] LABS: TROPONIN I 2.11 ng/mL (0.00-0.06)
[2018-10-05] MEDS ORDERED: MAGNESIUM 2GM PREMIX 50ML 100 ML IV ONE (16:15)
[2018-10-05] MEDS ORDERED: AMIODARONE HCL 50 MG/ML 3 ML VIAL ONE (18:13)
[2018-10-05] MEDS ORDERED: AMIODARONE HCL 150 MG in DEXTROSE 5%-WATER 100 ML IV SCH (18:15)
[2018-10-05] MEDS ORDERED: AMIODARONE HCL 900 MG in DEXTROSE 5%-WATER 500 ML IV SCH (18:30)
[2018-10-05 22:29] LABS: TROPONIN I 1.25 ng/mL (0.00-0.06)
--- NOTE | 2018-10-05 22:40 | NUR ---
Received report from ER nurse Agustín pt. is on Amiodarone drip @ 1mg /min and dose to change to 0.5mg @ 0140 am.Pt. was seen by Dr. Alex in ER and made aware of cardiac enzymes results .Dr. Purdy was also notified in ER and to follow up field care coordinator with call tomorrow morning.Mag was covered in Er as per report.AICD was interrogated already in ER.
[2018-10-05] MEDS ORDERED: GLUCAGON 1MG KIT 1 MG ML IM PRN (23:00)
[2018-10-05] MEDS ORDERED: DEXTROSE 50%-WATER 50 ML DISP.SYRIN IV PRN (23:00)
[2018-10-05 23:21] VITALS: BP 128/52
[2018-10-05] MEDS ORDERED: SACU1TAB PO (23:43)
[2018-10-05] MEDS ORDERED: NITR0.4T50 SL (23:43)
[2018-10-05] MEDS ORDERED: TORS10TA18 PO (23:43)
[2018-10-05] MEDS ORDERED: MAGNESIUM OX (23:43)
--- NOTE | 2018-10-06 04:03 | NUR ---
KATHRYN MCCALLUM,notified regarding pt. home meds completed and needs to be reconciled.
[2018-10-06] MEDS ORDERED: NITROGLYCERIN 0.4 MG SL TAB SL SCH (04:15)
[2018-10-06] MEDS ORDERED: ALPRAZOLAM 0.25 MG TABLET PO PRN (04:15)
[2018-10-06 04:26] VITALS: BP 116/56
[2018-10-06] MEDS: INSULIN HUMULIN R 100 UNIT/ML 3ML SQ SCH ×4 (06:06→22:12)
[2018-10-06 06:10] LABS: TROPONIN I 0.69 ng/mL (0.00-0.06)
[2018-10-06 07:00] VITALS: BP 115/67
--- NOTE | 2018-10-06 07:40 | NUR ---
ASSESSMENT ENCOUNTERED PT IN LIZ'S POSITION, A&OX3, CALM COOPERATIVE AND DOES NOT APPEAR TO BE IN ANY DISTRESS NOR ANY NEURO DEFICITS PRESENT. PT IS AMBULATORY, GAIT SLOW BUT STEADY WITH ASSIST. PT DOES C/O DYSPNEA ON EXERTION THAT RESOLVES SHORTLY AFTER SITTING IN CHAIR. PT DENIES PAIN, DIZZINESS OR LIGHTHEADEDNESS. TELE MONITOR DISPLAYS NSR. CALL LIGHT WITHIN REACH, FAMILY AT BEDSIDE.
--- NOTE | 2018-10-06 07:44 | NUR ---
Bedside report given using SBAR all questions answered.Dr. Purdy was notified by ER as per report to follow up Dr. Mcgrath today since he is his
[2018-10-06] MEDS ORDERED: MAGNESIUM 2GM PREMIX 50ML 50 ML IV ONE (08:18)
[2018-10-06] MEDS ORDERED: CARV3.12 PO (08:24)
[2018-10-06] MEDS: FERROUS SULFATE 325 MG TABLET.DR PO SCH ×2 (08:26→22:09)
[2018-10-06] MEDS: TORSEMIDE 20 MG TAB PO SCH (08:26)
[2018-10-06] MEDS: FAMOTIDINE 20MG TAB 20 MG TAB PO SCH (08:26)
[2018-10-06] MEDS: CLOPIDOGREL BISULFATE 75 MG TAB PO SCH (08:26)
[2018-10-06] MEDS ORDERED: MAGNESIUM 2GM PREMIX 50ML 50 ML IV PRN (08:30)
[2018-10-06] MEDS ORDERED: ENOXAPARIN SODIUM 40 MG/0.4 ML SYRINGE SQ SCH (09:00)
[2018-10-06] MEDS ORDERED: ASPIRIN 81 MG EC TAB PO SCH (09:00)
[2018-10-06 11:00] VITALS: BP 119/59
[2018-10-06] MEDS: MAGNESIUM OXIDE 400 MG TABLET PO SCH (13:16)
--- NOTE | 2018-10-06 15:13 | NUR ---
Nutrition intervention: Nutrition notification for poor appetite. Pt reports poor appetite has been going on for a while resulting in unintentional weight loss. Pt with a 20% weight loss in the past year, moderate weight loss. Recommend nutrition supplementation TID, pt agrees. Pt reports fatigue with chewing, as per request, texture modification to mechanical soft. LBM 2/4. Alb 4.5. BMI 20.7. Please consult TASHA as additional nutritional concerns arise. Addendum: 10/06/18 at [address] Amended: Links added.
[2018-10-06 16:00] VITALS: BP 105/62
[2018-10-06] MEDS ORDERED: CARV3.1262 PO (16:23)
[2018-10-06 19:00] VITALS: BP 107/62
--- NOTE | 2018-10-06 19:45 | NUR ---
Received bedside report pt. on Amiodarone drip to consume.Pt. deneis chestpain or any discomfort at this time.
[2018-10-06] MEDS ORDERED: ATORVASTATIN CALCIUM 40 MG TABLET PO SCH (21:00)
[2018-10-06] MEDS: APIXABAN 2.5 MG TABLET PO SCH (22:09)
[2018-10-06] MEDS: CARVEDILOL 3.125 MG TABLET PO SCH (22:10)
[2018-10-06 23:00] VITALS: BP 102/53
[2018-10-07 03:00] VITALS: BP 103/58
[2018-10-07 04:44] LABS: HEMATOCRIT 38.3 % (42-54); MEAN CORPUSCULAR HEMOGLOBIN 29.8 pg (27.0-33.0); MEAN CORPUSCULAR HGB CONC 33.5 g/dL (32.0-36.0); MEAN CORPUSCULAR VOLUME 88.9 fL (79-99); NUCLEATED RED BLOOD CELLS 0.1 % (0.0-0.19); PLATELET COUNT (AUTO) 188 K/uL (130-400); RED CELL DISTRIBUTION WIDTH 14.3 % (11.0-15.5); WHITE BLOOD COUNT (AUTO) 11.6 K/uL (4.8-10.8)
[2018-10-07 05:05] LABS: CREATININE 1.3 mg/dL (0.5-1.5); MAGNESIUM 1.6 mg/dL (1.80-2.40); PHOSPHORUS 3.7 mg/dL (2.5-4.9); POTASSIUM 3.8 mmol/L (3.5-5.1); TROPONIN I 0.22 ng/mL (0.00-0.06)
[2018-10-07] MEDS: INSULIN HUMULIN R 100 UNIT/ML 3ML SQ SCH ×2 (06:45→11:30)
--- NOTE | 2018-10-07 07:55 | NUR ---
Bedside report given to incoming NOD using SBAR all questions answered.
[2018-10-07 08:16] VITALS: BP 99/58
[2018-10-07] MEDS ORDERED: AMIODARONE HCL 200 MG TABLET PO SCH (09:00)
[2018-10-07] MEDS: MAGNESIUM OXIDE 400 MG TABLET PO SCH (09:00)
[2018-10-07] MEDS: FERROUS SULFATE 325 MG TABLET.DR PO SCH (10:44)
[2018-10-07] MEDS: FAMOTIDINE 20MG TAB 20 MG TAB PO SCH (10:44)
[2018-10-07] MEDS: CLOPIDOGREL BISULFATE 75 MG TAB PO SCH (10:44)
[2018-10-07] MEDS: APIXABAN 2.5 MG TABLET PO SCH (10:44)
[2018-10-07] MEDS: CARVEDILOL 3.125 MG TABLET PO SCH (10:45)
[2018-10-07] MEDS: TORSEMIDE 20 MG TAB PO SCH (10:45)
[2018-10-07] MEDS ORDERED: MAGOX PO (11:11)
[2018-10-07] MEDS ORDERED: APIX2.5T PO (11:11)
[2018-10-07 12:07] VITALS: BP 107/58
--- NOTE | 2018-10-07 14:24 | NUR ---
DARREN PLAN VISITED WITH PATIENT. SPOKE TO DR. PEREZ. DR. PEREZ SPOKE TO DR. CASTANEDA AND TO SPOUSE REGARDING HOSPICE. SPOUSE REQUESTED INFORMATION. LEFT LIST IN THE ROOM. Addendum: 10/07/18 at 1427 by BETITO BROWN RN CM Amended: Links added.
--- NOTE | 2018-10-07 15:00 | NUR ---
PT WAS DISCHARGED AND WAS GIVEN ALL THE INFORMATION FOR APPOINTMENTS AND 'S VISIT. WAS IN ROOM AND ALSO WAS TOLD ABOUT HIS APPOINTMENTS AND MEDS.
== END 2018-10-07 15:00 | disposition home or self-care (01) ==
LOC: EDH 08:47 → EDHIP 13:18 → 2DH 23:17
PROVIDERS: ADMIT Internal Medicine; ATTEND Internal Medicine
DX: R07.89 Other chest pain (principal); I11.0 Hypertensive heart disease with heart failure; I50.42 Chronic combined systolic (congestive) and diastolic (congestive) heart failure; E11.65 Type 2 diabetes mellitus with hyperglycemia; E78.2 Mixed hyperlipidemia; E83.42 Hypomagnesemia; I25.119 Atherosclerotic heart disease of native coronary artery with unspecified angina pectoris; I25.2 Old myocardial infarction; I25.5 Ischemic cardiomyopathy; I44.7 Left bundle-branch block, unspecified; I47.2 Ventricular tachycardia; I48.91 Unspecified atrial fibrillation; Z82.49 Family history of ischemic heart disease and other diseases of the circulatory system; Z83.3 Family history of diabetes mellitus; Z95.1 Presence of aortocoronary bypass graft; Z95.810 Presence of automatic (implantable) cardiac defibrillator
CPT/HCPCS: 36415 ×3; 71045; 80048; 80053; 82550 ×4; 82948 ×9; 83735 ×3; 83874 ×5; 84100; 84484 ×5; 85025; 85027; 85610; 85730; 93005 ×3; 93306; 96365; 96366; 96372 ×2; 99284; G0378 ×50; J0282 ×2; J1815 ×3; J2405; J3475 ×2; J7060 ×2

== ENCOUNTER 2019-01-17 13:34 | Emergency (ER) | payer OTHER, MEDICARE ==
[~2019-01-17 13:34] MED LIST changes: -AEC81 PO; +APIX2.5T PO; +CARV3.1262 PO; +MAGNESIUM OX; +MAGOX PO; +NITR0.4T50 SL; +SACU1TAB PO; +TORS10TA18 PO
[2019-01-17 14:15] LABS: BASOPHILS % (AUTO) 0.4 % (0.0-5.0); EOSINOPHILS % (AUTO) 0.4 % (0.0-8.0); HEMATOCRIT 35.6 % (42-54); LYMPHOCYTES % (AUTO) 23.1 % (21.0-51.0); MEAN CORPUSCULAR HEMOGLOBIN 29.6 pg (27.0-33.0); MEAN CORPUSCULAR HGB CONC 33.7 g/dL (32.0-36.0); MEAN CORPUSCULAR VOLUME 87.6 fL (79-99); MONOCYTES % (AUTO) 9.9 % (3.0-13.0); NEUTROPHILS % (AUTO) 66.2 % (40.0-77.0); PLATELET COUNT (AUTO) 214 K/uL (130-400); RED BLOOD CELL COUNT(AUTO) 4.07 MIL/uL (4.50-6.20); RED CELL DISTRIBUTION WIDTH 14.3 % (11.0-15.5); WHITE BLOOD COUNT (AUTO) 8.1 K/uL (4.8-10.8)
[2019-01-17 14:26] LABS: CARBON DIOXIDE 26 mmol/L (21-32); CHLORIDE 98 mmol/L (101-111); CREATININE 1.5 mg/dL (0.5-1.5); GLOMERULAR FILTR. RATE CALC 49 mL/min (>60); GLUCOSE,RANDOM 190 mg/dL (70-105); POTASSIUM 3.5 mmol/L (3.5-5.1); SODIUM SERUM 137 mmol/L (136-145); UREA NITROGEN, BLOOD 21 mg/dL (7-18)
[2019-01-17 14:31] LABS: ALANINE AMINOTRANSFERASE 16 U/L (12-78); ALBUMIN 3.6 g/dL (3.5-5.0); ASPARTATE AMINOTRANSFERASE 16 U/L (10-37); BILIRUBIN,TOTAL 0.4 mg/dL (0.2-1.0); TOTAL PROTEIN, SERUM 6.8 g/dL (6.0-8.3)
[2019-01-17 14:33] LABS: ACETAMINOPHEN < 1 mcg/mL (10-29); ALCOHOL, BLOOD < 3 mg/dL (0-10); SALICYLATE < 2.8 mg/dL (2.8-20.0)
[2019-01-17 14:57] LABS: APPEARANCE,URINE Clear (CLEAR); BILIRUBIN,URINE Negative (NEGATIVE); COLOR,URINE Yellow (YELLOW); GLUCOSE, URINE (UA) TRACE mg/dL (NEGATIVE); KETONES,URINE Negative (NEGATIVE); LEUKOCYTE ESTERASE ,URINE Negative (NEGATIVE); NITRATE,URINE Negative (NEGATIVE); OCCULT BLOOD,URINE Negative (NEGATIVE); PROTEIN,URINE Negative (NEGATIVE); UROBILINOGEN,URINE 0.2 mg/dL (0.2-1.0)
[2019-01-17 15:05] LABS: AMPHET/METH SCREEN,URINE NEGATIVE (NEGATIVE); BARBITURATE SCREEN, URINE NEGATIVE (NEGATIVE); BENZODIAZEPINES SCREEN,URINE NEGATIVE (NEGATIVE); CANNABINOID SCREEN,URINE NEGATIVE (NEGATIVE); COCAINE SCREEN,URINE NEGATIVE (NEGATIVE); OPIATE SCREEN,URINE NEGATIVE (NEGATIVE); PHENCYCLIDINE SCREEN,URINE NEGATIVE (NEGATIVE)
[2019-01-17 15:09] LABS: BACTERIA,URINE None Seen /HPF (None Seen); RBC,URINE None Seen /HPF (0-1); SQUAMOUS EPITHELIAL CELL,UR 0-2 /HPF (0-2); WBC,URINE None Seen /HPF (0-1)
== END 2019-01-18 19:11 | disposition short-term general hospital (02) ==
LOC: EDH 13:34
DX: R45.851 Suicidal ideations (principal); F32.9 Major depressive disorder, single episode, unspecified; I10 Essential (primary) hypertension; E11.9 Type 2 diabetes mellitus without complications; E78.5 Hyperlipidemia, unspecified; Z87.891 Personal history of nicotine dependence; Z90.49 Acquired absence of other specified parts of digestive tract; Z98.890 Other specified postprocedural states; Z79.899 Other long term (current) drug therapy
CPT/HCPCS: 36415; 80053; 80305; 81001; 85025; 93005; 99285; G0480 ×2; G0481